=== PATIENT | male | born 1950 | race Caucasian/White ===

== ENCOUNTER 2017-02-07 02:50 | Inpatient (IN) | payer OTHER, MEDICARE ==
[~2017-02-07] VITALS: Ht 177.8 cm; Wt 83.5 kg
[2017-02-07] MEDS ORDERED: VALSARTAN160 M1 PO (08:38)
[2017-02-07] MEDS ORDERED: FLUOXETINE HCL20 M2 PO (08:38)
[2017-02-07] MEDS ORDERED: PRAVASTATIN SOD20 M2 PO (08:41)
[2017-02-07] MEDS ORDERED: SEROQUEL25 M1 PO (08:41)
[2017-02-07] MEDS ORDERED: ATIVAN1 M1 PO (08:42)
[2017-02-07] MEDS ORDERED: PRAZOSIN HCL1 M1 PO (08:43)
[2017-02-07] MEDS ORDERED: GABAPENTIN100 M2 PO (08:43)
[2017-02-07] MEDS ORDERED: AMBIEN10 M1 PO (08:44)
--- NOTE | 2017-02-07 12:28 | Surgical Discharge Summary ---
Visit Information Visit Dates Admission Date: 02/07/17 Discharge Date: 02/07/2017 History of Present Illness Chief Complaint: Right hip pain secondary to osteoarthritis Surgical History Pertinent Surgical History: non-contributory Review of Systems: See H&P Hospital Course Course Attending Physician: DAGNELO PERRY MD Primary Care Physician: YESY SHANNON,[place] [facility] Hospital Course: Patient was admitted to the hospital on 02/07/2017 for an elective right total hip replacement. He tolerated the procedure well. He was transferred to a general surgical floor. His diet was advanced and tolerated. He voided spontaneously. His vital signs were stable and within normal limits. His pain was well controlled with oral pain medication. He was evaluated and treated by physical therapy. He was deemed appropriate for discharge. Allergies: Coded Allergies: No Known Allergies (02/04/17) Disposition Summary Disposition Principal Diagnosis: Right unilateral hip arthritis Additional Diagnosis: none Discharge Disposition: home health services Discharge Instructions General Discharge Information Code Status: Full Code Patient's Diet: Regular Patient's Activity: Weight-bearing as tolerated. Follow-Up Instructions/Appts: Follow-up with Dr. PERRY in 6 weeks Medications at Discharge Discharge Medications: Continue taking these medications: Valsartan (Valsartan) 160 MG TABLET 1 Tablet ORAL DAILY Comments: NOT GIVEN IN HOSPITAL Fluoxetine HCl (Fluoxetine HCl) 20 MG CAPSULE 1 Capsule ORAL DAILY Comments: NOT GIVEN IN HOSPITAL Pravastatin Sodium (Pravastatin Sodium) 20 MG TABLET 1 Tablet ORAL DAILY Comments: NOT GIVEN IN HOSPITAL Quetiapine Fumarate (Seroquel) 25 MG TABLET 1 Tablet ORAL Every night Comments: NOT GIVEN IN HOSPITAL Lorazepam (Ativan) 1 MG TABLET 1 Tablet ORAL TWICE DAILY Comments: NOT GIVEN IN HOSPITAL Gabapentin (Gabapentin) 100 MG CAPSULE 1 Capsule ORAL THREE TIMES DAILY Comments: NOT GIVEN IN HOSPITAL Prazosin HCl (Prazosin HCl) 1 MG CAPSULE 1 Capsule ORAL Every night Comments: NOT GIVEN IN HOSPITAL Zolpidem Tartrate (Ambien) 10 MG TABLET 1 Tablet ORAL Every night as needed as needed for sleep Comments: NOT GIVEN IN HOSPITAL Start taking the following new medications: Aspirin (Ecotrin*) 325 MG TABLET.DR 1 Tablet ORAL TWICE DAILY Qty = 60 No Refills Comments: NOT GIVEN IN HOSPTIAL Docusate Sodium (Colace) 100 MG CAPSULE 1 Capsule ORAL TWICE DAILY Qty = 14 No Refills Instructions: DISCONTINUE USE IF YOU DEVELOP LOOSE STOOL OR DIARRHEA Comments: NOT GIVEN IN HOSPITAL Polyethylene Glycol 3350 (Miralax) 17 GRAM POWD.PACK 1 Packet ORAL DAILY Qty = 7 No Refills Instructions: dissolve in water, DISCONTINUE USE IF YOU DEVELOP LOOSE STOOL OR DIARRHEA Comments: NOT GIVEN IN HOSPITAL Hydromorphone HCl (Dilaudid) 2 MG TABLET 1-2 Tablet ORAL EVERY 4-6 HOURS as needed for PAIN Qty = 36 No Refills Comments: NOT GIVEN IN HOSPITAL Omeprazole Magnesium (Prilosec Otc) 20 MG TABLET.DR 1 Tablet ORAL DAILY Qty = 30 No Refills Comments: NOT GIVEN IN HOSPITAL Morphine Sulfate (Ms Contin) 15 MG TABLET.ER 1 Tablet ORAL TWICE DAILY Qty = 6 No Refills Comments: NOT GIVEN IN HOSPITAL
--- NOTE | 2017-02-07 12:41 | Patient Discharge Instructions ---
Discharge Instructions General Discharge Information You were seen/treated for: Right hip pain secondary to arthritis You had these procedures: Right total hip knee replacement Special Instructions: Diet: regular, advance as tolerated Activity; weightbear as tolerated. Wound care: no bathing, soaking. You may shower. Do not apply any ointments to any postop/surgical site. Continue the DVT prophylaxis, aspirin, as directed. Continue the bowel regimen [Colace and MiraLAX] as instructed to avoid constipation secondary to narcotics. Please note that please follow-up with Dr. Busby in 6 weeks as instructed. Notify Physician prior to the follow-up visit if you develop any redness, drainage from the incision site, increasing pain which is uncontrolled by pain medication, or temperature greater than 101.5. Diet Continue normal diet: Yes Recommended Diet: Regular Additional DIET Information: Advance as tolerated Activity Full Activity/No Limits: No Activity Self Limited: Yes Pounds, do NOT lift more than: 10 Activity Limited to: Weight bear as tolerated Acute Coronary Syndrome Inclusion Criteria At DC or during hospital stay patient has or had the following: ACS DIAGNOSIS No Discharge Core Measures Meds if any: Prescribed or Continued at Discharge Meds if any: NOT Prescribed or Continued at Discharge Congestive Heart Failure Inclusion Criteria At DC or during hospital stay patient has or had the following: CHF DIAGNOSIS No Discharge Core Measures Meds if any: Prescribed or Continued at Discharge Meds if any: NOT Prescribed or Continued at Discharge Cerebrovascular accident Inclusion Criteria At DC or during hospital stay patient has or had the following: CVA/TIA Diagnosis No Discharge Core Measures Meds if any: Prescribed or Continued at Discharge Meds if any: NOT Prescribed or Continued at Discharge Venous thromboembolism Inclusion Criteria VTE Diagnosis No VTE Type NONE VTE Confirmed by (Test) NONE Discharge Core Measures - Per Current guidelines, there needs to be overlap - treatment for the first 5 days of Warfarin therapy. - If discharged on Warfarin prior to 5 days of - overlap therapy, the patient will need to be - assessed for post discharge needs including - *Post discharge parental anticoagulation - *Warfarin and/or parental anticoagulation education - *Follow up date to check INR post discharge At least 5 days overlap therapy as Inpatient No Meds if any: Prescribed or Continued at Discharge Warfarin No Note: Overlap Therapy is Warfarin and Anticoagulant Meds if any: NOT Prescribed or Continued at Discharge
--- NOTE | 2017-02-07 14:07 | Admission Core Measures ---
Admission Meds I reviewed the following Meds: Current Medications Sig/Rogelio Start time Last Medication Dose Stop Time Status Admin Acetaminophen 975 MG ONCE 02/07 0000 NR (Tylenol) 02/07 2359 Cefazolin Sodium 2,000 MG ONCE 02/07 0000 NR (Kefzol-Ancef Inj) 02/07 2359 Fluoxetine HCl 20 MG DAILY 02/08 1000 AC (Prozac) Gabapentin 100 MG TID 02/07 1600 AC (Neurontin) Lorazepam 1 MG BID 02/07 2200 AC (Ativan) Losartan Potassium 50 MG DAILY 02/08 1000 AC (Cozaar) Oxycodone HCl 10 MG ONCE 02/07 0000 NR (Roxicodone) 02/07 2359 Patient Medication 1 UNIT 1700 02/08 1700 AC Teaching 02/08 1701 (STATIN EDUCATION) Patient Medication 1 UNIT 1000 02/08 1000 AC Teaching 02/08 1001 (YOVANI INHIBITOR EDUCATION) Patient Medication 1 UNIT 2200 02/07 2200 AC Teaching 02/07 220 (ANXIOLYTIC EDUCATION) Pravastatin Sodium 20 MG 1700 02/08 1700 AC (Pravachol) Prazosin HCl 1 MG QPM 02/07 2200 AC (Minipress 1 MG) Quetiapine Fumarate 25 MG QPM 02/07 2200 AC (Seroquel) Acute Coronary Syndrome Inclusion Criteria ACS Diagnosis No Inpatient Core Measures LDL Reminder: If No, please order W/I first 24hr of stay Congestive Heart Failure Inclusion Criteria CHF Diagnosis No Cerebrovascular accident Inclusion Criteria CVA/TIA Diagnosis No Inpatient Core Measures Bedside Swallow Eval Reminder: If BSE failed, place ST order Antithrombotic Reminder: Order Antithrombotic Medication by end of day 2 Antithrombotic Reminder: Document Reason Antithrombotic Not ordered by end of day 2 AFIB/Flutter Reminder: If Present, add to problem list AFIB/Flutter Reminder: Order Anticoag Medication for pts with AFIB/Flutter Atherosclerosis Reminder: If Present, add to problem list LDL Reminder: If No, please order W/I first 24hr of stay PT Order Reminder: If No, please order Venous thromboembolism Inpatient Core Measures VTE Risk Factors: Age > 40, Surgery No [facility] VTE prophylaxis d/t No contraindications No VTE Pharm Prophylaxis d/t No contraindications Inclusion Criteria - Per Current guidelines, there needs to be overlap - treatment for the first 5 days of Warfarin therapy. - Parenteral Anticoagulation (IV or SC) needs to be - given along with Warfarin therapy. VTE Diagnosis No VTE Type NONE VTE Confirmed by (Test) NONE Problem List As ranked by this Provider includes Assessment & Plan 1. Unilateral primary osteoarthritis, right hip HOME MEDS Home Med List Fluoxetine HCl 20 MG CAPSULE 1 CAP PO DAILY UNKNOWN (Reported) Gabapentin 100 MG CAPSULE 1 CAP PO TID PAIN (Reported) Lorazepam (Ativan) 1 MG TABLET 1 TAB PO BID ANXIETY (Reported) Pravastatin Sodium 20 MG TABLET 1 TAB PO DAILY CHOL (Reported) Prazosin HCl 1 MG CAPSULE 1 CAP PO QPM SLEEP (Reported) Quetiapine Fumarate (Seroquel) 25 MG TABLET 1 TAB PO QPM SLEEP (Reported) Valsartan 160 MG TABLET 1 TAB PO DAILY BP (Reported) Zolpidem Tartrate (Ambien) 10 MG TABLET 1 TAB PO QPMP PRN sleep (Reported)
[2017-02-07] MEDS ORDERED: ASPIRIN EC325 M2 PO (14:17)
[2017-02-07] MEDS ORDERED: DILAUDID2 M1 PO (14:17)
[2017-02-07] MEDS ORDERED: MIRALAX17 G1 PO (14:17)
[2017-02-07] MEDS ORDERED: PRILOSEC OTC20 M1 PO (14:17)
[2017-02-07] MEDS ORDERED: COLACE100 M1 PO (14:17)
[2017-02-07] MEDS ORDERED: MS CONTIN15 M2 PO (14:17)
--- NOTE | 2017-02-07 14:35 | RADIOLOGY REPORT ---
EXAMINATION: XR HIP, RIGHT CLINICAL INFORMATION: Right total hip arthroplasty COMPARISON: None TECHNIQUE: Two views of the right hip. FINDINGS: Frontal and crosstable lateral views of the right hip were obtained. There is a right total hip arthroplasty in place, alignment is anatomic. There is soft tissue air, consistent with recent surgery. Spinal fusion hardware is also noted over the lower lumbar spine. There is no evidence of acute fracture. IMPRESSION: Anatomic alignment of right total hip arthroplasty without evidence of complication.
--- NOTE | 2017-02-07 14:46 | Operative Report ---
Operative/Inv Procedure Report Surgery Date: 02/07/17 Name of Procedure: Right total hip replacement Pre-Operative Diagnosis: Primary right hip DJD Post-Operative Diagnosis: Same Estimated Blood Loss: 400 Surgeon/Network Operations Manager: ORLANDO SHANNON,DANGELO Chau Anesthesia: block Operative/Procedure Note Note: Description of Procedure: The patient was taken to the operating room and positively identified. After induction of spinal anesthesia and administration of appropriate pre-operative antibiotics, the patient was positioned supine on the operating room table and all bony prominences were well padded. After performing a surgical timeout, the right lower extremity was prepped and draped in the usual sterile fashion. A direct anterior approach was made to the right hip. The incision was carried sharply through superficial soft tissues to the level of the fascia. Meticulous hemostasis was maintained with Bovie electocautery. The fascia over the tensor fascia keshav muscle was opened sharply and the interval between the TFL and the sartorius was entered bluntly taking care to stay lateral to the lateral femoral cutaneous nerve. Retractors were placed around the femoral neck and the pericapsular fat was identified. The ascending branches of the lateral femoral circumflex vessels were identified and carefully coagulated. The pericapsular fat and anterior capsule were then resected. A napkin ring osteotomy was performed and the femoral head was removed without difficulty. Attention was then turned to the acetabulum. After appropriate placement of retractors, the acetabulum was exposed. Soft tissue was cleaned from the acetabular margin and notch. Overhanging osteophytes were removed and the teardrop was exposed. The acetabulum was then sequentially reamed to accept a 58 mm Abiola Tritanium hemispherical solid back shell. This was impacted into place in the appropriate position and fitted with a 36 mm Trident X3 zero degree polyethylene insert. Attention was then turned to the femur. After performing the appropriate ligament releases, the proximal femur was exposed. It was then sequentially broached to accept a size 6 Mammoth accolade 2 stem. This was trialed for leg length and stability. The trial component was removed and the final component was impacted into place. The trunnion was carefully cleaned and fit with a 36 mm, +2.5 Biolox delta ceramic femoral head. The hip was reduced and put through a full range of motion and found to be stable. The articular space was then irrigated with sterile saline. The periarticular soft tissues were infilitrated with Marcaine. The fascial layer was closed with interrupted #1 vicryl suture and the skin was re-approximated with interrupted 2 -0 vicryl. The skin was closed with a running 3-0 V-Lock suture. Steri-strips and a sterile dressing were applied. The patient was awakened and taken to the recovery room in satisfactory condition.
[2017-02-07 15:00] VITALS: BP 117/70
--- NOTE | 2017-02-07 15:00 | NUR ---
NURSING NOTE: PATIENT ARRIVED TO FLOOR VIA STRETCHER WITH DISTRIBUTION FROM PACU. PATIENT A/OX3, DENIES PAIN AT THIS TIME. PATIENT IMMEDIATELY GOT UP WITH PT AX1 WITH RW WITHOUT ISSUE. PATIENT DENIED PAIN WITH MOVEMENT. PATIENT STATES HE WANTS TO BE DISCHARGED SOON POSSIBLE. PATIENT REFUSED ALL MEDICATIONS AND DINNER STATING HE WILL WAIT UNTIL HE GETS HOME. WILL CONTINUE TO MONITOR. ALL BELONGINGS ARRIEVD TO FLOOR WITH PATIENT TO THE BEDSIDE.
--- NOTE | 2017-02-07 15:48 | PN- Orthopedic ---
Subjective Subjective: The patient was seen this afternoon postoperatively. He reports that pain is under adequate control and he is eager to be discharged today. Objective Vital Signs and I&Os Vital signs: Blood pressure 130/70, pulse 65, temperature 97.5, O2 sat duration 94% on 3 L via nasal cannula I's and O's: 2600 ML's in of lactated Ringer's/due to void/EBL less than 150 Physical Exam: Gen.: Alert and in no obvious distress Skin: Warm and dry Cardiac: S1 and S2 regular Pulmonary: Bilateral breath sounds equal with good exchange Extremities: Bilateral lower extremities are warm without calf tenderness or significant edema. Gross motor and sensory are intact. Right hip surgical dressing is clean, dry, and intact. Assessment/Plan Assessment/Plan Assessment: 66-year-old male status post right total hip arthroplasty. Postoperative the patient is progressing as expected and his pain is under adequate control. Plan: Out of bed with physical therapy patient is weightbearing as tolerated Continue current pain regiment Monitor for postoperative void GI and DVT prophylaxis the patient will start aspirin first dose tonight Advance diet as tolerated Possible discharge home later today if goals met Core Measures/Miscellaneous Venous Thromboembolism VTE Risk Factors: Age > 40, Surgery VTE Contraindications: No Contraindications VTE Diagnosis: No VTE Type: NONE VTE Confirmed by (Test): NONE Beta Nithya Is Beta Nithya a Home Med? No Antibiotics Is Patient on Antibiotics? Yes If Yes: prophylaxis
--- NOTE | 2017-02-07 18:30 | NUR ---
NURSING NOTE: PATIENT DISCHARGED HOME WITH ALL PAPERWORK, PRESCRIPTIONS ALREADY FILLED AND PICKED UP BY FROM [facility]. EXTRA DRSG'S GIVEN TO PATIENT FOR DISCHARGE. PATIENT CONTINUES TO DENY PAIN. ROLLING WALKER ARRIVED AND DISCHARGED WITH PATIENT. IV DISCONTINUED AT THIS TIME. PATIENT WALKED OUT WITH SPOUSE AND BELONGINGS AND RW.
== END 2017-02-07 18:30 | DRG 470 ==
LOC: ENRESERVDT → ENRESERVTM → SDA 02:50 → 2NB 15:00
PROVIDERS: ADMIT Orthopaedic Surgery
PROC: 0SR904A Replacement of Right Hip Joint with Ceramic on Polyethylene Synthetic Substitute, Uncemented, Open Approach (ICD-10-PCS; principal; 2017-02-07)
DX: M16.11 Unilateral primary osteoarthritis, right hip (principal); I10 Essential (primary) hypertension; E78.5 Hyperlipidemia, unspecified; N40.0 Benign prostatic hyperplasia without lower urinary tract symptoms
CPT/HCPCS: 2NBSP; 73502-RT; 88304; 97116-GO; 97161-GP; 97530-GO; J0690; J0735; J1100; J2405; J7042